=== PATIENT | female | born 1970 | race Caucasian/White ===

== ENCOUNTER 2021-12-03 12:14 | Emergency (ER) | payer OTHER | END 2021-12-03 13:41 | disposition home or self-care (01) | LOC: DL.ED 12:14 | DX: S92.355A Nondisplaced fracture of fifth metatarsal bone, left foot, initial encounter for closed fracture (principal); I10 Essential (primary) hypertension; W10.8XXA Fall (on) (from) other stairs and steps, initial encounter | CPT/HCPCS: 73610-LT; 73630-LT; 99283; 99283-25 ==